=== PATIENT | female | born 1980 | race Caucasian/White ===

== ENCOUNTER 2016-12-02 19:43 | Emergency (ER) | payer BC, OTHER ==
[2016-12-02 19:55] VITALS: BP 158/85; PULSE 96; RESP 18; TEMP 99.8
--- NOTE | 2016-12-02 20:23 | ED ---
General Adult HPI - General Chief complaint: Abdominal Pain Stated complaint: Abd Pain-Hx Hernia Time Seen by Provider: 12/02/16 20:03 Source: patient, RN notes reviewed Mode of arrival: ambulatory Limitations: no limitations - History of Present Illness Initial comments: 36-year-old female presents to the emergency department with a chief complaint of concern for hernia. Patient does admit to history of hernia repair 2 years ago and states that shebulging her abdomen. Patient states when she is up moving around she has some pain but when she lays back her pain completely resolves. Patient states that she hasn't had see having bowel or bladder habits she denies any nausea or vomiting with this. She was concerned due to the fact that she does have the pain on standing so she thought that she should be seen. Patient denies any recent fever, chills, shortness of breath, chest pain, back pain, abdominal pain, nausea vomiting, numbness or tingling, dysuria or hematuria, constipation or diarrhea, headaches or visual changes, or any other current symptoms. - Related Data Allergies Allergy/AdvReac Type Severity Reaction Status Date / Time No Known Allergies Allergy Verified 12/02/16 19:53 Review of Systems ROS Statement: Those systems with pertinent positive or pertinent negative responses have been documented in the HPI. ROS Other: All systems not noted in ROS Statement are negative. Past Medical History Past Medical History: Hypertension History of Any Multi-Drug Resistant Organisms: None Reported Past Surgical History: Hernia Repair, Hysterectomy, Tubal Ligation Past Psychological History: No Psychological Hx Reported Smoking Status: Never smoker Past Alcohol Use History: None Reported Past Drug Use History: None Reported General Exam Limitations: no limitations General appearance: alert, in no apparent distress Head exam: Present: atraumatic, normocephalic, normal inspection ENT exam: Present: normal exam, mucous membranes moist Neck exam: Present: normal inspection. Absent: tenderness, meningismus, lymphadenopathy Respiratory exam: Present: normal lung sounds bilaterally. Absent: respiratory distress, wheezes, rales, rhonchi, stridor Cardiovascular Exam: Present: regular rate, normal rhythm, normal heart sounds. Absent: systolic murmur, diastolic murmur, rubs, gallop, clicks GI/Abdominal exam: Present: soft, normal bowel sounds, hernia (Abdominal wall that is reducible on exam). Absent: distended, tenderness, guarding, rebound, rigid Neurological exam: Present: alert, oriented X3 Psychiatric exam: Present: normal affect, normal mood Skin exam: Present: warm, dry, intact, normal color. Absent: rash Course Vital Signs 12/02/16 19:48 Temperature 99.8 F H Pulse Rate 96 Respiratory 18 Rate Blood Pressure 158/85 O2 Sat by Pulse 98 Oximetry Medical Decision Making - Medical Decision Making 36-year-old male presents emergency Department chief complaint of abdominal wall hernia. At this time the hernia is completely reducible on exam. We discussed return parameters and follow-up care for the patient. We did discuss pain control. We did discuss all the patient's questions. She stated that she understood and she is given plan. All questions have been answered. This time she'll be discharged home. Disposition Clinical Impression: Abdominal wall hernia Disposition: HOME SELF-CARE Condition: Stable Instructions: Ventral Hernia (ED) Additional Instructions: Please use medication as discussed. Please follow up with family doctor if symptoms have not improved over the next two days. Please return to the emergency room if your symptoms increase or worsen or for any other concerns. Referrals: Benjamín Dutta MD [STAFF PHYSICIAN] - 1-2 days Time of Disposition: 20:23
== END 2016-12-02 20:33 | disposition home or self-care (01) ==
LOC: EC 19:43
DX: K43.9 Ventral hernia without obstruction or gangrene (principal); I10 Essential (primary) hypertension
CPT/HCPCS: 99283